=== PATIENT | male | born 1955 | race African-American/Black ===

== ENCOUNTER 2016-04-27 11:25 | Emergency (ER) | payer MEDICARE, MEDICAID ==
[2015-10-15 13:27] VITALS: BMI 32.1
[~2016-04-27 11:25] MED LIST: ALDACTONE25 MG PO; BAYER ASPIRIN325 MG PO; DIOVAN320 MG PO; EXFORGE 10-3201 TAB PO; FISH OIL 1,0001 CA1 PO; K-DUR20 MEQ PO; LIPITOR20 MG PO; NEURONTIN 300300 MG PO; NEXIUM40 MG PO; NIFEDIPINE ER60 MG PO; NORMODYNE / TR300 MG PO; ZANAFLEX4 MG PO; ZOLOFT100 MG PO
== END 2016-04-27 14:45 | disposition home or self-care (01) ==
LOC: D.ER 11:25
DX: M10.071 Idiopathic gout, right ankle and foot (principal); F41.9 Anxiety disorder, unspecified; E87.6 Hypokalemia; F17.200 Nicotine dependence, unspecified, uncomplicated

== ENCOUNTER 2016-06-08 18:26 | Emergency (ER) | payer MEDICARE, MEDICAID ==
[2015-10-15 13:27] VITALS: BMI 32.1
[2016-06-08 19:18] LABS: BASOPHILS 0.2 % (0.0-2.0); EOSINOPHILS 3.9 % (0-7); HEMATOCRIT 39.5 % (42.0-54.0); HEMOGLOBIN 13.6 g/dL (13.5-17.5); IMMATURE GRANULOCYTES 0.1 % (0-5); LYMPHOCYTES 29.4 % (15-50); MCH 32.7 pg (26.0-34.0); MCHC 34.4 g/dL (31.0-37.0); MEAN PLATELET VOLUME 11.1 fL (7.4-10.4); MONOCYTES 8.7 % (2-11); NEUTROPHILS 57.7 % (40-80); PLATELET COUNT 223 10x3/uL (130-400); RBC 4.16 10x6/uL (4.20-6.10); WBC 8.7 10x3/uL (4.8-10.8)
[2016-06-08 19:37] LABS: ALBUMIN 3.4 g/dL (3.4-5.0); ALKALINE PHOSPHATASE 102 U/L (46-116); ALT (SGPT) 20 U/L (10-68); BILIRUBIN - TOTAL 0.34 mg/dL (0.2-1.3); CALC OSMOLALITY 272 mosm/kg (275-300); CALCIUM 9.3 mg/dL (8.5-10.1); CARBON DIOXIDE 25.2 mmol/L (21.0-32.0); CHLORIDE - SERUM 101 mmol/L (98-107); GLUCOSE 102 mg/dL (74-106); POTASSIUM - SERUM 3.3 mmol/L (3.5-5.1); PROTEIN - SERUM 8.5 g/dL (6.4-8.2); SODIUM 137 mmol/L (136-145); UREA NITROGEN 9 mg/dL (7-18); eGFR NON AFRICAN AMERICAN 81 mL/min (90-120)
[2016-06-08 19:48] LABS: CHOL - HDL RATIO 5.8 ratio (2.3-4.9); CHOLESTEROL, TOTAL 186 mg/dL (0-200); CREATINE KINASE 180 UL (21-232); HDL CHOLESTEROL 32 mg/dL (32-96); LDL CHOLESTEROL 117 mg/dL (0-100); LDL-HDL RATIO 3.7 ratio (1.5-3.5); PRO BNP 396 pg/mL (0-125); TRIGLYCERIDE 189 mg/dL (30-200); TROPONIN-I 0.021 ng/mL (0.000-0.060)
== END 2016-06-08 21:40 | disposition home or self-care (01) ==
LOC: D.ER 18:26
PROVIDERS: Emergency Medicine
DX: R07.9 Chest pain, unspecified (principal); F17.200 Nicotine dependence, unspecified, uncomplicated; I44.0 Atrioventricular block, first degree

== ENCOUNTER → 2017-03-26 09:10 | Outpatient (CLI) | payer MEDICARE, MEDICAID ==
[2015-10-15 13:27] VITALS: BMI 32.1
[2017-03-26 09:58] LABS: HEMATOCRIT 42.4 % (42.0-54.0); LYMPHOCYTES 28.8 % (15-50); MCHC 35.4 g/dL (31.0-37.0); MCV 93.2 fL (80.0-100.0); MEAN PLATELET VOLUME 10.2 fL (7.4-10.4); NEUTROPHILS 67.7 % (40-80); PLATELET COUNT 199 10x3/uL (130-400); RBC 4.55 10x6/uL (4.20-6.10); RDW 15.1 % (11.5-14.5); WBC 8.2 10x3/uL (4.8-10.8)
[2017-03-26 10:04] LABS: INR 1.06 (0.85-1.17); PROTIME 13.2 SECONDS (11.6-15.0)
[2017-03-26 10:09] LABS: % SATURATION 24 % (15-55); IRON 99 ug/dl (35-150); TOTAL IRON BIND CAPACITY 402 ug/dl (260-445); UNSAT IRON BIND CAPACITY 303 ug/dl (150-375)
[2017-03-26 10:19] LABS: ANION GAP 15.6 mmol/L (8-16); BILIRUBIN - DIRECT 0.25 mg/dL (0.00-0.30); BILIRUBIN - INDIRECT 0.45 mg/dL (0.00-1.00); BILIRUBIN - TOTAL 0.7 mg/dL (0.2-1.3); CALCIUM 9.8 mg/dL (8.5-10.1); CARBON DIOXIDE 28.4 mmol/L (21.0-32.0); CREATININE - SERUM 1.1 mg/dL (0.6-1.3); PROTEIN - SERUM 8.3 g/dL (6.4-8.2)
[2017-03-27 08:25] LABS: FOLATE (FOLIC ACID) - SERUM 3.4 ng/mL (>3.0)
[2017-03-27 11:19] LABS: ALPHA FETOPROTEIN -(TUMOR MRK) 10.1 ng/mL (0.0-8.3)
[2017-03-27 14:19] LABS: HEPATITIS C ANTIBODY 0.1 (0.0-0.9)
[2017-03-28 15:26] LABS: MITOCHONDRIAL ANTIBODY 23.6 Units (0.0-20.0); SMOOTH MUSCLE ABS (ACTIN) 14 Units (0-19)
== END | disposition home or self-care (01) ==
LOC: D.US 03-20 10:00 → D.LAB 03-20 11:00 → D.RAD 03-20 11:15 → D.US 09:00
PROVIDERS: Internal Medicine Gastroenterology
DX: R10.9 Unspecified abdominal pain (principal); R93.8 Abnormal findings on diagnostic imaging of other specified body structures; D52.9 Folate deficiency anemia, unspecified; R74.8 Abnormal levels of other serum enzymes

== ENCOUNTER → 2017-04-24 10:05 | Outpatient (CLI) | payer MEDICARE, MEDICAID ==
[2015-10-15 13:27] VITALS: BMI 32.1
[2017-04-24 11:20] LABS: ALBUMIN 3.8 g/dL (3.4-5.0); BILIRUBIN - TOTAL 0.63 mg/dL (0.2-1.3); CALCIUM 9.2 mg/dL (8.5-10.1); CARBON DIOXIDE 27.6 mmol/L (21.0-32.0); CREATININE - SERUM 1.1 mg/dL (0.6-1.3); PROTEIN - SERUM 8.7 g/dL (6.4-8.2)
[2017-04-24 11:21] LABS: ANION GAP 16.4 mmol/L (8-16)
[2017-04-26 09:18] LABS: ANA REFLEX - DIRECT Negative (Negative)
== END | disposition home or self-care (01) ==
LOC: D.US 10:05 → D.LAB 10:30
PROVIDERS: Internal Medicine Gastroenterology
DX: R14.0 Abdominal distension (gaseous) (principal); R10.9 Unspecified abdominal pain; R74.8 Abnormal levels of other serum enzymes

== ENCOUNTER 2017-05-21 21:57 | Observation (INO) | payer MEDICARE, MEDICAID ==
[2015-10-15 13:27] VITALS: BMI 32.1
[2017-05-21 22:26] LABS: BASOPHILS 0.3 % (0-2); EOSINOPHILS 2.7 % (0-7); HEMOGLOBIN 15.7 g/dL (13.5-17.5); IMMATURE GRANULOCYTES 0.3 % (0-5); LYMPHOCYTES 31.5 % (15-50); MCH 33.1 pg (26.0-34.0); MCHC 35.7 g/dL (31.0-37.0); MCV 92.8 fL (80.0-100.0); MEAN PLATELET VOLUME 10.5 fL (7.4-10.4); MONOCYTES 6.3 % (2-11); NEUTROPHILS 58.9 % (40-80); PLATELET COUNT 221 10x3/uL (130-400); RBC 4.74 10x6/uL (4.20-6.10); RDW 15.8 % (11.5-14.5); WBC 7.3 10x3/uL (4.8-10.8)
[2017-05-21 22:59] LABS: ALBUMIN 3.5 g/dL (3.4-5.0); ALKALINE PHOSPHATASE 77 U/L (46-116); ALT (SGPT) 110 U/L (10-68); BILIRUBIN - TOTAL 0.52 mg/dL (0.2-1.3); CALC OSMOLALITY 272 mosm/kg (275-300); CALCIUM 8.5 mg/dL (8.5-10.1); CARBON DIOXIDE 28.3 mmol/L (21.0-32.0); CHLORIDE - SERUM 97 mmol/L (98-107); CHOL - HDL RATIO 3.8 ratio (2.3-4.9); CHOLESTEROL, TOTAL 120 mg/dL (0-200); CKMB 42.1 U/L (0.0-3.6); CREATININE - SERUM 0.9 mg/dL (0.6-1.3); GLUCOSE 97 mg/dL (74-106); HDL CHOLESTEROL 32 mg/dL (32-96); LDL CHOLESTEROL 49 mg/dL (0-100); LDL-HDL RATIO 1.5 ratio (1.5-3.5); LIPASE 217 U/L (73-393); PRO BNP 268 pg/mL (0-125); SODIUM 137 mmol/L (136-145); TRIGLYCERIDE 196 mg/dL (30-200); TROPONIN-I 0.048 ng/mL (0.000-0.060); UREA NITROGEN 10 mg/dL (7-18); eGFR NON AFRICAN AMERICAN > 90 mL/min (90-120)
[2017-05-21 23:03] LABS: CREATINE KINASE 6825 UL (21-232); POTASSIUM - SERUM 2.8 mmol/L (3.5-5.1)
[2017-05-22 03:36] LABS: APPEARANCE CLOUDY (CLEAR); BILIRUBIN NEGATIVE (NEGATIVE); COLOR YELLOW (YELLOW); GLUCOSE NEGATIVE (NEGATIVE); KETONE NEGATIVE (NEGATIVE); NITRITE NEGATIVE (NEGATIVE); PROTEIN 1+ mg/dL (NEGATIVE)
[2017-05-22 03:38] LABS: BACTERIA MANY /hpf (NONE SEEN); EPITHELIAL CELLS 0-5 /hpf (0-5); RED CELLS - URINE 0-5 /hpf (0-5)
[2017-05-22 03:40] LABS: UDS - AMPHET NEGATIVE QUAL (NEGATIVE); UDS - BARB NEGATIVE QUAL (NEGATIVE); UDS - BENZO NEGATIVE QUAL (NEGATIVE); UDS - COCAINE NEGATIVE QUAL (NEGATIVE); UDS - OPIATE NEGATIVE QUAL (NEGATIVE); UDS - PCP NEGATIVE QUAL (NEGATIVE); UDS - THC NEGATIVE QUAL (NEGATIVE)
== END 2017-05-22 04:15 | disposition left against medical advice (07) ==
LOC: D.ER 21:57 → OBSVTIME 23:54 → D.EDHOLD 23:54
PROVIDERS: Family Medicine
DX: M62.82 Rhabdomyolysis (principal); R07.9 Chest pain, unspecified; E87.6 Hypokalemia; R79.89 Other specified abnormal findings of blood chemistry

== ENCOUNTER 2017-06-11 20:37 | Emergency (ER) | payer MEDICARE, MEDICAID ==
[2015-10-15 13:27] VITALS: BMI 32.1
== END 2017-06-11 21:04 | disposition home or self-care (01) ==
LOC: D.ER 20:37
DX: Z02.9 Encounter for administrative examinations, unspecified (principal)

== ENCOUNTER 2018-05-01 13:57 | Emergency (ER) | payer MEDICARE, MEDICAID ==
[2015-10-15 13:27] VITALS: Ht 170.2 cm; Wt 92.7 kg
[~2018-05-01] VITALS: Ht 170.2 cm; Wt 92.7 kg
[2018-05-01 14:22] LABS: BASOPHILS 0.3 % (0-2); HEMATOCRIT 42.8 % (42.0-54.0); HEMOGLOBIN 15.4 g/dL (13.5-17.5); IMMATURE GRANULOCYTES 0.2 % (0-5); LYMPHOCYTES 21.5 % (15-50); MCH 35.2 pg (26.0-34.0); MCV 97.7 fL (80.0-100.0); MEAN PLATELET VOLUME 10.4 fL (7.4-10.4); MONOCYTES 5.9 % (2-11); NEUTROPHILS 68.1 % (40-80); PLATELET COUNT 229 10x3/uL (130-400); RBC 4.38 10x6/uL (4.20-6.10); RDW 16.3 % (11.5-14.5); WBC 8.7 10x3/uL (4.8-10.8)
[2018-05-01 14:35] LABS: ALBUMIN 3.9 g/dL (3.4-5.0); ALKALINE PHOSPHATASE 90 U/L (46-116); ALT (SGPT) 45 U/L (10-68); CALC OSMOLALITY 275 mosm/kg (275-300); CALCIUM 8.8 mg/dL (8.5-10.1); CARBON DIOXIDE 23.6 mmol/L (21.0-32.0); CHLORIDE - SERUM 101 mmol/L (98-107); CREATININE - SERUM 1.1 mg/dL (0.6-1.3); GLUCOSE 124 mg/dL (74-106); POTASSIUM - SERUM 3.1 mmol/L (3.5-5.1); PROTEIN - SERUM 8.5 g/dL (6.4-8.2); SODIUM 138 mmol/L (136-145); UREA NITROGEN 9 mg/dL (7-18); eGFR NON AFRICAN AMERICAN 72 mL/min (90-120)
[2018-05-01 14:45] LABS: CKMB 29.6 U/L (0.0-3.6); TROPONIN-I 0.031 ng/mL (0.000-0.060)
[2018-05-01] MEDS ORDERED: PROTONIX40 MG PO (14:53)
[2018-05-01] MEDS ORDERED: TENORMIN50 MG PO (14:53)
[2018-05-01] MEDS ORDERED: PLAVIX75 MG PO (14:53)
[2018-05-01 15:11] LABS: CREATINE KINASE 2488 UL (21-232)
[2018-05-01 16:52] VITALS: BP 130/76
== END 2018-05-01 16:53 | disposition home or self-care (01) ==
LOC: D.ER 13:57
PROVIDERS: Family Medicine
DX: R06.00 Dyspnea, unspecified (principal); E86.0 Dehydration; R74.8 Abnormal levels of other serum enzymes

== ENCOUNTER 2018-07-09 12:42 | Emergency (ER) | payer MEDICARE, MEDICAID ==
[~2018-07-09] VITALS: Ht 170.2 cm; Wt 90.9 kg
[~2018-07-09 12:42] MED LIST changes: +PLAVIX75 MG PO; +PROTONIX40 MG PO; +TENORMIN50 MG PO
[2018-07-09 12:56] VITALS: Ht 170.2 cm; Wt 90.9 kg
[2018-07-09 14:30] LABS: ALBUMIN 3.5 g/dL (3.4-5.0); ALKALINE PHOSPHATASE 89 U/L (46-116); ALT (SGPT) 47 U/L (10-68); BILIRUBIN - TOTAL 0.43 mg/dL (0.2-1.3); CALC OSMOLALITY 271 mosm/kg (275-300); CARBON DIOXIDE 27.7 mmol/L (21.0-32.0); CHLORIDE - SERUM 98 mmol/L (98-107); GLUCOSE 110 mg/dL (74-106); SODIUM 135 mmol/L (136-145); UREA NITROGEN 16 mg/dL (7-18); eGFR NON AFRICAN AMERICAN 80 mL/min (90-120)
[2018-07-09 14:35] LABS: BASOPHILS 0.5 % (0-2); EOSINOPHILS 3.3 % (0-7); HEMATOCRIT 44.3 % (42.0-54.0); HEMOGLOBIN 16.1 g/dL (13.5-17.5); IMMATURE GRANULOCYTES 0.4 % (0-5); LYMPHOCYTES 22.9 % (15-50); MCH 34.1 pg (26.0-34.0); MCHC 36.3 g/dL (31.0-37.0); MCV 93.9 fL (80.0-100.0); MEAN PLATELET VOLUME 10.9 fL (7.4-10.4); NEUTROPHILS 67.9 % (40-80); PLATELET COUNT 244 10x3/uL (130-400); RBC 4.72 10x6/uL (4.20-6.10); RDW 14.4 % (11.5-14.5); WBC 7.6 10x3/uL (4.8-10.8)
[2018-07-09 16:17] VITALS: BP 155/102
== END 2018-07-09 16:17 | disposition home or self-care (01) ==
LOC: D.ER 12:42
PROVIDERS: Family Medicine
DX: I10 Essential (primary) hypertension (principal); I25.10 Atherosclerotic heart disease of native coronary artery without angina pectoris; E87.6 Hypokalemia

== ENCOUNTER → 2020-07-07 12:26 | Outpatient (CLI) | payer MEDICARE, MEDICAID ==
[2020-04-27 16:30] VITALS: BMI 34.5
== END | disposition home or self-care (01) ==
LOC: D.MRI 12:26
PROVIDERS: ATTEND Anesthesiology Pain Medicine
DX: M47.892 Other spondylosis, cervical region (principal)